=== PATIENT | female | born 1965 | race Caucasian/White ===

== ENCOUNTER → 2017-03-03 | Day surgery (SDC) | payer OTHER ==
[~2017-03-03] MED LIST: ALTACE10 M2 PO; BENTYL20 MG PO; BYSTOLIC5 MG PO; HYDROCODON-ACE1 EA11 PO; HYDROCODON-ACE1 EAC4 PO; LISINOPRIL10 MG PO; MOBIC15 MG PO; NEURONTIN300 MG PO; NORCO 10-325 TA1 TAB PO; NORVASC PO; OXYCODONE-ACET1 EAC1 PO; PLAQUENIL200 MG PO; PRILOSEC PO; PROTONIX PO; PROZAC PO; PROZAC40 MG PO; RAMIPRIL10 MG PO; VITAMIN B 12 SUBQ; VITAMIN B12 INJECTIO SUBQ; VITAMIN D250000 UNIT PO; VITAMIN D400 UNI1 PO; VITAMIN D50000 UNIT PO; XANAX1 MG PO; ZOLOFT PO
--- NOTE | ~2017-03-03 | OR ---
Unit #: [id number] #: [id number] Patient: ROSE CASEY [id number] [address] [id number] [id number] O MR#: [id number] NAME: ROSE CASEY. ROOM: Date of Procedure: 03/03/2017 Admission Date: 03/03/2017 Surgeon: Elgin Mendez M.D. : 1965 Attending Physician: Elgin Mendez M.D. Primary Care Physician: Jadiel Brenner M.D. OPERATIVE REPORT PREOPERATIVE DIAGNOSES 1. Reflux symptoms resistant to medications. 2. Rectal bleeding. POSTOPERATIVE DIAGNOSES 1. Reflux symptoms resistant to medications. 2. Rectal bleeding. PROCEDURES PERFORMED 1. Esophagogastroduodenoscopy. 2. Biopsy of antrum for Helicobacter pylori testing. 3. Colonoscopy to cecum. ANESTHESIA Monitored anesthesia care. FINDINGS The patient was found to have a small hiatal hernia and mild gastritis on upper endoscopy. The patient was found to have keane-diverticular disease as well as mild internal hemorrhoids on colonoscopy. SPECIMENS Sent to pathology. COMPLICATIONS None apparent. CONDITION The patient tolerated the procedure well. INDICATIONS FOR PROCEDURE The patient is a 52-year-old white female, who presents at this time with intermittent rectal bleeding as well as reflux symptoms resistant to medications. DESCRIPTION OF PROCEDURE After obtaining informed consent, the patient was brought to the endoscopy suite and after adequate monitored anesthesia care, had the endoscope placed through the mouth into the upper esophagus under direct vision. It was advanced to the second portion of the duodenum without difficulty with lumen always in view. The duodenum was within normal limits as was the Unit #: [id number] #: [id number] Patient: ROSE CASEY duodenal bulb. The pylorus opened normally. There was some mild distal gastritis present and a biopsy was obtained for Helicobacter pylori testing. On retroflexing back to the GE junction, there was a small hiatal hernia seen. No other abnormalities were found in the proximal third, middle third, or incisura. On pulling back above the GE junction, there was no stenosis, stricture, or neoplasm seen. The remaining portion of the esophagus was within normal limits. Laryngeal structures were grossly normal as viewed from above. The colonoscope was then placed through the anus and slowly advanced to the level of the cecum without difficulty with the lumen always in view. The cecum was normal as was the ileocecal valve. There was scattered keane-diverticular disease present throughout the colon, but other than this, there was no abnormality seen in the ascending colon, hepatic flexure, transverse colon, splenic flexure, descending colon, sigmoid colon, or rectum. On retroflexing in the rectum to the anorectal junction, there were some mild internal hemorrhoids seen. The scope was removed without difficulty. The patient tolerated the procedure well and went from the endoscopy suite to recovery area in stable condition. RECOMMENDATIONS Gastroesophageal reflux sheet given. Diverticular sheet given. High-fiber diet, lots of liquids, tucks or wipes p.r.n. Prescription for omeprazole 40 mg p.o. daily was given. Dictated by... Antonina Sams/sydney TD: 03/03/2017 13:42 JOB #: [id number] CC: [facility] OPERATIVE REPORT Page 1 of 1 X Elgin Mendez MD X PROCEDURE OPERATIVE NOTE
== END | disposition home or self-care (01) ==
LOC: COPS 10:16
DX: K29.70 Gastritis, unspecified, without bleeding (principal); K62.5 Hemorrhage of anus and rectum; K57.30 Diverticulosis of large intestine without perforation or abscess without bleeding; K64.8 Other hemorrhoids; K44.9 Diaphragmatic hernia without obstruction or gangrene; K21.9 Gastro-esophageal reflux disease without esophagitis; I10 Essential (primary) hypertension; M19.90 Unspecified osteoarthritis, unspecified site; G89.29 Other chronic pain; M54.5 Low back pain; F41.8 Other specified anxiety disorders; Z87.891 Personal history of nicotine dependence; Z79.899 Other long term (current) drug therapy
CPT/HCPCS: 87077